=== PATIENT | male | born 2000 | race Caucasian/White ===

== ENCOUNTER 2019-02-12 05:36 | Emergency (ER) | payer OTHER ==
[2019-02-12] MEDS ORDERED: PROPARACAINE 0.5% 15 ML OPHT DROP OP ONE (05:42)
[2019-02-12] MEDS ORDERED: FLUORESCEIN SODIUM 1 MG STRIP OP ONE (05:42)
[2019-02-12] MEDS ORDERED: OFLOXACIN 0.3% SOLN PREPACK OPHT.BTL TAKEHOME ONE (06:09)
== END 2019-02-12 06:20 | disposition home or self-care (01) ==
DX: H10.32 Unspecified acute conjunctivitis, left eye (principal)